=== PATIENT | female | born 1980 | race Caucasian/White ===

== ENCOUNTER 2025-02-23 15:14 | Emergency (ER) | payer OTHER, SELFPAY ==
[2025-02-23 15:25] VITALS: BP 106/75
[2025-02-23 15:43] LABS: Hematocrit 41.0 % (37.0-47.0); Hemoglobin 13.5 g/dL (12.0-16.0); Mean Corp Hgb Conc. 32.9 g/dL (33.0-37.0); Mean Corpuscular Volume 86.1 fL (81.0-99.0); Nucleated Red Blood Cells % 0 %; Platelet Count 267 10^3/uL (130-400); Red Cell Dist. Width 12.7 % (11.5-14.5)
[2025-02-23 16:04] LABS: ALT (SGPT) 158 U/L (0-35); AST (SGOT) 48 U/L (14-36); Albumin 4.8 g/dl (3.5-5.0); Alkaline Phosphatase 146 U/L (38-126); Blood Urea Nitrogen 14 mg/dl (7-17); Calcium 10.6 mg/dl (8.4-10.2); Carbon Dioxide 28 mmol/L (22-30); Chloride 103 mmol/L (98-107); Glucose 101 mg/dl (70-99); Lipase 47 U/L (23-300); Potassium 4.7 mmol/L (3.5-5.1); Sodium 138 mmol/L (135-145); Total Protein 8.6 g/dl (6.3-8.2); eGFR > 60.00
[2025-02-23 17:25] VITALS: BP 113/77
--- NOTE | 2025-02-23 17:46 | ED.GENMED ---
History of Present Illness
General
Chief Complaint: Abdominal Symptoms
Time Seen by Provider: 02/23/25 16:46
History of Present Illness
History of Present Illness:
44-year-old female with history of breast cancer with now suspected metastasis to bone presenting to the emergency department for generalized abdominal discomfort, nausea,, constipation past several days. The diagnosis of the bone metastasis is
relatively new, has a follow-up appointment on the at [facility] for treatment plan. She is not currently on any chemotherapy. She has been having ongoing abdominal discomfort, has known history of IBS. Reports that she was seen at [facility] a few
weeks ago, had a CT that showed constipation. She has not taken any medication for the constipation. Notes some nausea, however Zofran is not helping her nausea. She notes that she got morphine for her pain, however morphine does not help her
pain. Denies any significant abdominal surgeries. Denies additional acute medical complaints
Past History
Past History
ED Past Medical History: Cancer (Breast cancer treated with radiation and chemotherapy), GERD and Hypothyroidism
ED Past Surgical History: Appendectomy, Cholecystectomy and Gynecological
Social History
Tobacco: Non-smoker
Alcohol: None
Drug: None
Living: with family
Phy Exam
Physical Exam
Physical Exam:
General: Well-appearing, no clinical signs of dehydration, nontoxic and in no acute distress
HEENT: protecting airway
Neck: appears supple
CV: Normal heart rate, regular rhythm
Resp: No accessory muscle use, no increased work of breathing, lungs clear to auscultation bilaterally
Abd: Soft and non-distended, generalized tenderness to lower abdomen without rebound or guarding
Extremities: No deformities, no swelling
Neuro: alert, no focal neurologic deficit
: deferred
Rectal: deferred
Psych: Normal affect
Skin: Intact
Course
Orders/Labs/Results
Orders:
Orders
02/23/25 15:34
Complete Blood Count/With Diff Urgent
Comprehensive Metabolic Panel Urgent
HCG, Serum Qualitative Screen Urgent
Lipase Urgent
02/23/25 17:29
CT Abd/pelvis W Iv Cont Urgent
Comment:
Reason For Exam: generalized pain, N/V/constipation
0.9% Sodium Chloride 1000 ml [Nss] 1,000 ml IV BOLUS
HYDROmorphone [Dilaudid] 1 mg IV NOW STA
Metoclopramide [Reglan] 5 mg IV NOW STA
02/23/25 17:31
Add On- LAB Urgent
Tests Added?: serum
02/23/25 18:39
Urinalysis Urgent
Date Specimen was Collected: 02/23/25
Time Specimen was Collected: 18:38
Urine Microscopic Urgent
Date Specimen was Collected: 02/23/25
Time Specimen was Collected: 18:38
02/23/25 20:43
CDIFF [C difficile Antigen & Toxins] Urgent
SUYAPA Source: Feces/Stool
Specimen Description:
Stool Culture Urgent
SUYAPA Source: Feces/Stool
Specimen Description:
Abnormal Lab Results
02/23/25 02/23/25
15:34 18:39
MCHC 32.9 L g/dL
(33.0-37.0)
Absolute Lymphs (auto) 0.9 L 10^3/uL
(1.2-3.4)
Lymphocytes % 15.0 L %
(20.5-51.1)
Glucose 101 H mg/dl
(70-99)
Calcium 10.6 H mg/dl
(8.4-10.2)
AST 48 H U/L
(14-36)
ALT 158 H U/L
(0-35)
Alkaline Phosphatase 146 H U/L
(38-126)
Total Protein 8.6 H g/dl
(6.3-8.2)
Urine Ketones 3+ A
(Negative)
Urine Occult Blood 1+ A
(Negative)
Urine RBC 3-6 A /HPF
(0-2)
Urine Bacteria Few A
(Negative)
02/23/25 15:34
02/23/25 15:34
Vital Signs
Initial and Last Documented VS:
Initial Vital Signs
Temp Pulse Resp BP Pulse Ox
98 F 81 16 106/75 98
02/23/25 15:25 02/23/25 15:25 02/23/25 15:25 02/23/25 15:25 02/23/25 15:25
Last Documented Vital Signs
Temp Pulse Resp BP Pulse Ox
97.6 F 81 16 113/77 98
02/23/25 18:00 02/23/25 15:25 02/23/25 15:25 02/23/25 17:25 02/23/25 17:51
MDM/Problems Addressed
MDM/Problems Addressed:
44-year-old female with history of breast cancer with suspected metastasis to bone presenting for abdominal pain. Vital signs are normal.
On exam patient is in no acute distress, nontoxic. On abdominal exam, generalized tenderness, no rebound or guarding. Did ask this patient from [facility], recently had CT imaging which showed constipation. Likely etiology of patient's presenting
complaints. Notes that she has not been using any stool softeners because she is feeling nausea. No significant distention with lower suspicion for obstruction. No lateralizing tenderness with lower suspicion for appendicitis or diverticulitis.
Patient had labs obtained prior to my assessment which does show elevation of liver enzymes, however on review of labs from [facility], ALT on 02/14 was 276 and AST was 261.
20:40 -patient CT shows evidence of pancolitis. Patient otherwise remains hemodynamically stable. Patient offered admission given her symptoms versus disposition home. She would prefer to go home with antiemetics. Will prescribe Reglan. Will
also send stool sample if patient able to provide. Otherwise do feel stable for discharge with outpatient follow-up. Return precautions discussed
*Pulse Oximetry
SaO2: 98
Oxygen Mode of Delivery: Room air
Patient hypoxic: no
*Critical Care Note
Total Time (30-74mins, 75-104mins- exclusive of procedures): Not Applicable
ED Attending Note
-
Portions of this chart may have been created with voice recognition software.� Occasional wrong word or��sound alike� substitutions may have occurred due to the inherent limitations of voice recognition software.
Discharge Plan
Departure
Prescriptions:
No Action
tamoxifen 10 MG tablet
10 mg PO DAILY
gabapentin 300 MG capsule
300 mg PO HS
fluticasone propionate [Flovent HFA] 1 PUFF HFA aerosol inhaler
2 puff inhalation R BID
escitalopram oxalate 10 MG tablet
10 mg PO DAILY
hetijfafklj-qoivugblc-ofopgcad [Trelegy Ellipta] 1 EACH blister with device
1 ea IH DAILY
Exemestane 25 MG Tab
25 mg PO DAILY
Nurtec Odt
75 mg PO R Q48H
pramipexole 0.5 MG tablet
0.5 mg PO DAILY Qty: 30 0RF
Rx Instructions:
Can aggravate symptoms of gastroparesis
polyethylene glycol 3350 17 GRAMS powder in packet
17 grams PO BID Qty: 60 0RF
sennosides-docusate sodium 1 TABLET tablet
2 tab PO BID Qty: 120 0RF
hydrocortisone acetate 25 MG suppository
25 mg CO HS Qty: 7 0RF
pantoprazole 40 MG tablet,delayed release (DR/EC)
40 mg PO DAILY Qty: 30 0RF
mupirocin 1 APPLIC ointment
1 applic topical TID Qty: 30 0RF
mirtazapine 15 MG tablet,disintegrating
7.5 mg PO HS Qty: 30 0RF
metoclopramide HCl 10 MG tablet
10 mg PO ACHS Qty: 120 0RF
lubiprostone 24 MCG capsule
24 mcg PO BID Qty: 60 0RF
magnesium citrate [Citroma] 300 ML solution
300 ml PO ONCE Qty: 300 0RF
Rx Instructions:
if no BM for 5 days
hydrocortisone acetate 25 MG suppository
25 mg CO HS Qty: 7 0RF
oxycodone-acetaminophen 5 MG/325 MG tablet
1 tab PO Q8HPRN PRN (Reason: Sev pain) Qty: 12 0RF
Referrals:
No Berger CRNP [Family Provider, Family Practice]
Interventions
Interventions:
*Risk Screen - Suicide Last Done: 02/23/25 15:25
*General Assessment Last Done: 02/23/25 15:25
*Neglect/Abuse Screening Last Done: 02/23/25 15:25
*ED- Fall Risk Assessment Last Done: 02/23/25 15:25
*ED COVID-19 Vaccine History Last Done: 02/23/25 15:25
RB-Vmcszh-Dnwortnbyr Assessment Last Done: 02/23/25 17:26
Discharge Date and Time
Print Language: MONTENEGRIN
[2025-02-23 18:11] LABS: HCG, Serum Qualitative Screen Negative
[2025-02-23] MEDS: REGLAN 5 MG IV ×2 (18:32→20:55)
[2025-02-23] MEDS: DILAUDID 1 MG IV (18:32)
[2025-02-23] MEDS: NSS 1000 IV (18:35)
[2025-02-23 18:50] LABS: Urine Character Clear (Clear)
[2025-02-23 19:02] LABS: Urine White Cell 0-2 /HPF (0-5)
[2025-02-23 21:00] VITALS: BP 107/72
== END 2025-02-23 22:45 | disposition home or self-care (01) ==
LOC: EMR 15:14
PROVIDERS: EMERGENCY PHYSICIAN Student in an Organized Health Care Education/Training Program; FAMILY PHYSICIAN Registered Nurse
DX: K52.9 Noninfective gastroenteritis and colitis, unspecified (principal); Z85.3 Personal history of malignant neoplasm of breast; E03.9 Hypothyroidism, unspecified; Z90.49 Acquired absence of other specified parts of digestive tract; Z92.3 Personal history of irradiation
CPT/HCPCS: 96374; 96375; 99284; 96376; 74177; 80053; 81003; 81015; 83690; 84703; 85025; 87045; 87046; 87324; 87427; 87449; Q9967

== ENCOUNTER 2025-03-09 16:45 | Emergency (ER) | payer OTHER, SELFPAY ==
[2025-03-09 16:46] VITALS: BP 115/72
[2025-03-09 17:03] LABS: Hematocrit 35.1 % (37.0-47.0); Hemoglobin 11.2 g/dL (12.0-16.0); Mean Corp Hgb Conc. 31.9 g/dL (33.0-37.0); Mean Corpuscular Volume 88.4 fL (81.0-99.0); Nucleated Red Blood Cells % 0 %; Platelet Count 195 10^3/uL (130-400); Red Cell Dist. Width 12.7 % (11.5-14.5)
[2025-03-09 17:11] LABS: INR 1.03; PT 14.0 Sec (11.4-14.6)
[2025-03-09 17:22] LABS: ALT (SGPT) 35 U/L (0-35); AST (SGOT) 35 U/L (14-36); Albumin 3.8 g/dl (3.5-5.0); Alkaline Phosphatase 91 U/L (38-126); Blood Urea Nitrogen 13 mg/dl (7-17); Calcium 8.9 mg/dl (8.4-10.2); Carbon Dioxide 28 mmol/L (22-30); Chloride 108 mmol/L (98-107); Glucose 114 mg/dl (70-99); Potassium 4.2 mmol/L (3.5-5.1); Sodium 140 mmol/L (135-145); Total Protein 6.7 g/dl (6.3-8.2); eGFR > 60.00
[2025-03-09 17:25] LABS: Troponin I < 0.012 ng/ml
[2025-03-09 19:09] VITALS: BMI 25.8
[2025-03-09 19:16] VITALS: BP 105/72
[2025-03-09 19:17] VITALS: BP 105/72
--- NOTE | 2025-03-09 19:27 | ED.GENMED ---
History of Present Illness
General
Chief Complaint: Generalized Pain
Source: patient and records
Exam Limitations: none
Time Seen by Provider: 03/09/25 19:08
Nursing documentation reviewed up to this point in time: agreed with
History of Present Illness
History of Present Illness:
44 female metastatic breast cancer to the brain on Oxy 15 extended release and immediate release p.o. chemo has a port on the right chest few days of chest pain sharp pains like in her chest and to her heart fever of 101.8 a few days ago mild cough
a few days ago with leg edema, also constipation no BM for few days apparently visiting nurse was giving some fluids through her port due to low blood pressure details of which are unclear
Looks like she was admitted with colitis sometime in the recent past
Past History
Past History
ED Past Medical History: Cancer (Breast cancer treated with radiation and chemotherapy), GERD and Hypothyroidism
ED Past Surgical History: Appendectomy, Cholecystectomy and Gynecological
Social History
Tobacco: Non-smoker
Alcohol: None
Drug: None
Living: with family
Review of Systems
Review of Systems
All Other Systems: Not applicable
Constitutional: Reports fever
Respiratory: Reports cough
Cardiac: Reports chest pain
ABD/GI: Reports abdominal pain and constipated
: Reports dysuria
Musculoskeletal: Reports no symptoms
Skin: Reports no symptoms
Hematologic/Lymphatic: Reports no symptoms
Phy Exam
Physical Exam
Physical Exam:
Physical Exam
General: Chronically ill female nontoxic
Neck: No jaw
Heart: s1/s2 regular rate and rhythm, no murmur. equal radial pulses.
Lungs: no acute respiratory distress. clear bilaterally
Abdomen: Distended mild lower abdominal tenderness
Neuro: alert and oriented. no focal neurological deficits
Skin: no rash
Psychiatric: well kept. interactive and cooperative
Extremities: Nonpitting lower extremity
Course
Orders/Labs/Results
Orders:
Orders
03/09/25 16:52
EKG [Electrocardiogram (*1)] Urgent
Reason for Study: Chest Pain
EKG- Treatment ONCE
03/09/25 16:54
Complete Blood Count/With Diff Urgent
Comprehensive Metabolic Panel Urgent
Prothrombin Time Urgent
Troponin I Urgent
03/09/25 19:19
CXR2 [CR Chest - 2 Views ] Urgent
Comment:
Reason For Exam: CHEST PAIN
03/09/25 19:23
Magnesium Citrate [Citroma] 300 ml PO ONCE ONE
03/09/25 19:24
CT Chest PE Study Urgent
Comment:
Reason For Exam: cp sob cacner pt
03/09/25 20:17
Morphine Sulfate Extended Rel. [Ms Contin (Extended Release)] 15 mg PO NOW STA
03/09/25 22:02
Urinalysis Reflex To Culture Urgent
Date Specimen was Collected: 03/09/25
Time Specimen was Collected: 21:56
Abnormal Lab Results
03/09/25
16:54
WBC 4.6 L 10^3/uL
(4.8-10.8)
RBC 3.97 L 10^6/uL
(4.20-5.40)
Hgb 11.2 L g/dL
(12.0-16.0)
Hct 35.1 L %
(37.0-47.0)
MCHC 31.9 L g/dL
(33.0-37.0)
MPV 10.8 H fL
(7.4-10.4)
Eosinophils % 10.8 H %
(0-6)
Chloride 108 H mmol/L
(98-107)
Glucose 114 H mg/dl
(70-99)
Total Bilirubin 0.1 L mg/dl
(0.2-1.3)
10/08/25 16:54
03/09/25 16:54
Vital Signs
Initial and Last Documented VS:
Initial Vital Signs
Temp Pulse Resp BP Pulse Ox
99.4 F 88 16 115/72 98
03/09/25 16:46 03/09/25 16:46 03/09/25 16:46 03/09/25 16:46 03/09/25 16:46
Last Documented Vital Signs
Temp Pulse Resp BP Pulse Ox
98.3 F 76 18 113/81 99
03/09/25 19:19 03/09/25 22:45 03/09/25 22:15 03/09/25 22:01 03/09/25 22:45
MDM/Problems Addressed
Differential Diagnosis Includes:
Metastatic disease deconditioning PE pneumonia less likely ACS, UTI constipation
MDM/Problems Addressed:
Multiple chest pain shortness of breath constipation dysuria abdominal pain
Chronic conditions affecting care: Previous abdomnial surgery and Cancer
Acute Exacerbation and/or Progression of Chronic Illness: Previous abdomnial surgery and Cancer
*Radiology
Radiology exam reviewed: preliminary read by ED provider and radiology read reviewed
*Pulse Oximetry
SaO2: 98
Oxygen Mode of Delivery: Room air
Patient hypoxic: no
*EKG
Interpreted by ED Provider?: Yes
Interpretation: normal
Comparison EKG: no comparison EKG present
Heart Rate: 78
Rate: normal
Rhythm: sinus
Ischemia: no ischemia
*Negative Turner Interpretation
Rate: normal
Interpretation: normal
Heart Rate: 78
Rhythm: sinus
*Critical Care Note
Total Time (30-74mins, 75-104mins- exclusive of procedures): Not Applicable
Data Reviewed
Review of Other/Old Records Reveals: Labs and Records
Source: patient
Update Note
Update Note:
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
we will have her follow-up with her PCP and oncologist for that we will start her on a more aggressive bowel regimen
ED Attending Note
-
Portions of this chart may have been created with voice recognition software.� Occasional wrong word or��sound alike� substitutions may have occurred due to the inherent limitations of voice recognition software.
Discharge Plan
Departure
Patient Disposition: Home (Routine Discharge)
Date of Disposition: 03/09/25
Time of Disposition: 22:50
Patient with high blood pressure during this ER visit?: No
Condition: Good
Covid-19: Not Applicable
Discharge Problem:
Constipation, Chest wall pain
Instructions: Chronic Pain (DC), Cancer Pain Syndromes (DC), Managing pain when you have cancer, Home Treatments for Constipation When You Have Cancer, Constipation in adults - ED (DC), Chest Pain
Prescriptions:
New
lactulose [Generlac] 10 gram/15 mL solution
20 g PO BID PRN (Reason: Constipation) Qty: 1200 0RF
No Action
tamoxifen 10 MG tablet
10 mg PO DAILY
gabapentin 300 MG capsule
300 mg PO HS
fluticasone propionate [Flovent HFA] 1 PUFF HFA aerosol inhaler
2 puff inhalation R BID
escitalopram oxalate 10 MG tablet
10 mg PO DAILY
lpqervjaaep-mzfizxrkp-psctuuhj [Trelegy Ellipta] 1 EACH blister with device
1 ea IH DAILY
Exemestane 25 MG Tab
25 mg PO DAILY
Nurtec Odt
75 mg PO R Q48H
pramipexole 0.5 MG tablet
0.5 mg PO DAILY Qty: 30 0RF
Rx Instructions:
Can aggravate symptoms of gastroparesis
polyethylene glycol 3350 17 GRAMS powder in packet
17 grams PO BID Qty: 60 0RF
sennosides-docusate sodium 1 TABLET tablet
2 tab PO BID Qty: 120 0RF
hydrocortisone acetate 25 MG suppository
25 mg IN HS Qty: 7 0RF
pantoprazole 40 MG tablet,delayed release (DR/EC)
40 mg PO DAILY Qty: 30 0RF
mupirocin 1 APPLIC ointment
1 applic topical TID Qty: 30 0RF
mirtazapine 15 MG tablet,disintegrating
7.5 mg PO HS Qty: 30 0RF
metoclopramide HCl 10 MG tablet
10 mg PO ACHS Qty: 120 0RF
lubiprostone 24 MCG capsule
24 mcg PO BID Qty: 60 0RF
magnesium citrate [Citroma] 300 ML solution
300 ml PO ONCE Qty: 300 0RF
Rx Instructions:
if no BM for 5 days
hydrocortisone acetate 25 MG suppository
25 mg IN HS Qty: 7 0RF
oxycodone-acetaminophen 5 MG/325 MG tablet
1 tab PO Q8HPRN PRN (Reason: Sev pain) Qty: 12 0RF
metoclopramide HCl [Reglan] 5 mg tablet
5 mg PO Q8H PRN (Reason: nausea and vomiting) Qty: 9 0RF
Referrals:
No Berger CRNP [Family Provider, Family Practice]
Interventions
Interventions:
*Risk Screen - Suicide Last Done: 03/09/25 16:46
*General Assessment Last Done: 03/09/25 19:14
*Neglect/Abuse Screening Last Done: 03/09/25 16:46
*ED- Fall Risk Assessment Last Done: 03/09/25 16:46
*ED COVID-19 Vaccine History Last Done: 03/09/25 19:14
*ED Influenza Vaccine History Last Done: 03/09/25 19:14
Discharge Date and Time
Print Language: LITHUANIAN
[2025-03-09 20:00] VITALS: BP 103/73
[2025-03-09] MEDS: MS CONTIN (EXTENDED RELEASE) 15 MG PO (20:33)
[2025-03-09] MEDS: CITROMA 300 ML PO (20:35)
[2025-03-09 21:00] VITALS: BP 104/75
[2025-03-09 22:01] VITALS: BP 113/81
[2025-03-09 22:09] LABS: Urine Character Clear (Clear)
== END 2025-03-09 23:13 | disposition home or self-care (01) ==
LOC: EMR 16:45
PROVIDERS: Emergency Medicine; EMERGENCY PHYSICIAN Emergency Medicine; FAMILY PHYSICIAN Registered Nurse
DX: K59.00 Constipation, unspecified (principal); R07.89 Other chest pain; E03.9 Hypothyroidism, unspecified; C79.31 Secondary malignant neoplasm of brain; Z85.3 Personal history of malignant neoplasm of breast; Z92.3 Personal history of irradiation; Z79.891 Long term (current) use of opiate analgesic
CPT/HCPCS: 99285; 71046; 71275; 80053; 81003; 84484; 85025; 85610; 93005; Q9967